=== PATIENT | male | born 1995 | race Caucasian/White ===

== ENCOUNTER 2019-07-09 16:22 | Emergency (ER) | payer OTHER ==
[2019-07-09] MEDS ORDERED: ONDANSETRON HCL INJ/PF 4 MG/2 ML SDV IV ONE ×2 (16:46→20:00)
[2019-07-09] MEDS ORDERED: NORMAL SALINE 1000 ML 1,000 ML IV ONE (16:46)
--- NOTE | 2019-07-09 17:08 | ER Document Report ---
ED General - General Chief Complaint: Fever Stated Complaint: FEVER Time Seen by Provider: 07/09/19 16:25 Mode of Arrival: Ambulatory Information source: Patient Notes: This 24-year-old male with history of depression myocarditis and anxiety presents to the emergency department with fever nausea vomiting or throat and cough that all started yesterday. Patient gives history of recent treatment for strep throat approximately 1 week ago he finished penicillin. He reports fever of 102 last night. Reports he had some nausea and vomiting yesterday. Also complains of cough with yellow sputum that started yesterday. Denies shortness of breath denies chest pain. 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 No family around him at this time. Denies covid exposure. Denies recent trip out of town. - HPI Onset: Yesterday Onset/Duration: Sudden Quality of pain: Other - Sore throat Associated symptoms: Productive cough, Fever, Nausea, Vomiting, Sore throat Exacerbated by: Denies Relieved by: Denies Similar symptoms previously: No Recently seen / treated by doctor: Yes - Related Data Allergies/Adverse Reactions: No Known Allergies Allergy (Verified 07/09/19 18:28) Past Medical History - General Information source: Patient - Social History Smoking Status: Never Smoker Chew tobacco use (# tins/day): No Frequency of alcohol use: None Drug Abuse: None Occupation: Active duty [employer] Lives with: Alone - Patient has family but is living alone at this time Family History: None Patient has suicidal ideation: No Patient has homicidal ideation: No - Past Medical History Cardiac Medical History: Reports: Other - Myocarditis Psychiatric Medical History: Reports: Hx Anxiety, Hx Depression Past Surgical History: Reports: Hx Nose Surgery, Hx Orthopedic Surgery - Immunizations Immunizations up to date: Yes Review of Systems - Review of Systems Notes: Review HPI for review of systems., All other systems negative Physical Exam - Vital signs Vitals: Temp 99.2 F 07/09/19 16:23 - General General appearance: Appears well, Alert In distress: None - HEENT Head: Normocephalic, Atraumatic Eyes: Normal Conjunctiva: Normal Extraocular movements intact: Yes Pupils: PERRL Ears: Normal External canal: Normal Tympanic membrane: Normal Sinus: Normal Nasal: Normal Mouth/Lips: Normal Mucous membranes: Moist Pharynx: Normal, Erythema. No: Exudate, Tonsillar hypertrophy, Potential airway comprom. Neck: Normal, Supple. No: Lymphadenopathy - Respiratory Respiratory status: No respiratory distress Chest status: Nontender Breath sounds: Normal Chest palpation: Normal - Cardiovascular Rhythm: Regular Heart sounds: Normal auscultation Murmur: No - Abdominal Inspection: Normal Distension: No distension Bowel sounds: Normal Tenderness: Nontender Organomegaly: No organomegaly - Back Back: Normal - Extremities General upper extremity: Normal ROM, Normal strength General lower extremity: Normal ROM, Normal strength - Neurological Neuro grossly intact: Yes Cognition: Normal Orientation: AAOx4 [place] Coma Scale Eye Opening: Spontaneous Paulo Coma Scale Verbal: Oriented Paulo Coma Scale Motor: Obeys Commands Paulo Coma Scale Total: 15 Speech: Normal - Psychological Associated symptoms: Normal affect, Normal mood - Skin Skin Temperature: Warm Skin Moisture: Dry Skin Color: Normal Course - Re-evaluation Re-evalutation: 07/09/19 17:06 24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 Gives history of strep approximately 1 week ago. Reports he has not had any re-exposure from strep that he knows of. Denies COVID exposure. Fluids with antinausea medicine, labs strep influenza and COVID ordered. patient instructed on plan of care. 07/09/19 Patient reports he feels much better no further vomiting drinking p.o. fluids. Labs unremarkable strep and flu test negative. COVID test obtained. Throat culture pending. Patient was instructed on all results. Patient was instructed on the importance of pushing fluids monitoring his temperature treat as appropriate. He was instructed on COVID quarantine. He verbalized understanding to all instructions. Laboratory 07/09/19 07/09/19 07/09/19 17:20 17:20 17:20 WBC 9.8 RBC 5.00 Hgb 15.9 Hct 45.3 MCV 91 MCH 31.8 MCHC 35.1 RDW 12.4 Plt Count 270 Lymph % (Auto) 13.5 [place] % (Auto) 9.4 Eos % (Auto) 0.2 Baso % (Auto) 0.4 Absolute Neuts (auto) 7.5 Absolute Lymphs (auto) 1.3 Absolute Monos (auto) 0.9 Absolute Eos (auto) 0.0 Absolute Basos (auto) 0.0 Seg Neutrophils % 76.5 Sodium Potassium Chloride Carbon Dioxide Anion Gap BUN Creatinine Est GFR ( Amer) Est GFR (MDRD) Non-Af Glucose Calcium Total Bilirubin Direct Bilirubin Neonat Total Bilirubin Neonat Direct Bilirubin Neonat Indirect Bili AST ALT Alkaline Phosphatase Total Protein Albumin Urine Color Urine Appearance Urine pH Ur Specific [place] Urine Protein Urine Glucose (UA) Urine Ketones Urine Blood Urine Nitrite Urine Bilirubin Urine Urobilinogen Ur Leukocyte Esterase Urine WBC (Auto) Squamous Epi Cells Auto Urine Mucus (Auto) Urine Ascorbic Acid Influenza A (Rapid) NEGATIVE Influenza B (Rapid) NEGATIVE Group A Strep Rapid NEGATIVE 07/09/19 07/09/19 17:20 18:30 WBC RBC Hgb Hct MCV MCH MCHC RDW Plt Count Lymph % (Auto) [place] % (Auto) Eos % (Auto) Baso % (Auto) Absolute Neuts (auto) Absolute Lymphs (auto) Absolute Monos (auto) Absolute Eos (auto) Absolute Basos (auto) Seg Neutrophils % Sodium 135.9 L Potassium 3.9 Chloride 99 Carbon Dioxide 25 Anion Gap 12 BUN 13 Creatinine 1.14 Est GFR ( Amer) > 60 Est GFR (MDRD) Non-Af > 60 Glucose 84 Calcium 9.4 Total Bilirubin 0.9 Direct Bilirubin 0.1 Neonat Total Bilirubin Not Reportable Neonat Direct Bilirubin Not Reportable Neonat Indirect Bili Not Reportable AST 46 ALT 67 H Alkaline Phosphatase 58 Total Protein 8.3 H Albumin 5.1 H Urine Color YELLOW Urine Appearance CLEAR Urine pH 6.0 Ur Specific [place] 1.013 Urine Protein NEGATIVE Urine Glucose (UA) NEGATIVE Urine Ketones TRACE H Urine Blood NEGATIVE Urine Nitrite NEGATIVE Urine Bilirubin NEGATIVE Urine Urobilinogen NEGATIVE Ur Leukocyte Esterase NEGATIVE Urine WBC (Auto) 0 Squamous Epi Cells Auto <1 Urine Mucus (Auto) OCC Urine Ascorbic Acid NEGATIVE Influenza A (Rapid) Influenza B (Rapid) Group A Strep Rapid 07/09/19 19:25 Chest X-Ray 07/09/19 16:46 IMPRESSION: 1. NO ACUTE RADIOGRAPHIC FINDING IN THE CHEST. 07/09/19 22:50 - Vital Signs Vital signs: Temp Pulse Resp BP Pulse Ox 99.6 F 90 19 138/79 H 98 07/09/19 19:10 07/09/19 19:10 07/09/19 19:10 07/09/19 19:10 07/09/19 19:10 - Laboratory Result Diagrams: 07/09/19 17:20 07/09/19 17:20 Laboratory results interpreted by me: 07/09/19 07/09/19 17:20 18:30 Sodium 135.9 L ALT 67 H Total Protein 8.3 H Albumin 5.1 H Urine Ketones TRACE H - Diagnostic Test Radiology reviewed: Reports reviewed Discharge - Discharge Clinical Impression: Sore throat Fever Qualifiers: Fever type: unspecified Qualified Code(s): R50.9 - Fever, unspecified Nausea and vomiting Qualifiers: Vomiting type: unspecified Vomiting Intractability: non-intractable Qualified Code(s): R11.2 - Nausea with vomiting, unspecified Condition: Stable Disposition: HOME, SELF-CARE Instructions: Acetaminophen, Antinausea Medication ([facility]), Intravenous (IV) Fluids ([facility]), Sore Throat ([facility]), Vomiting ([facility]) Additional Instructions: *You have been evaluated for a sore throat, fever, nausea and vomiting Your strep and influenza test were negative. A throat culture is pending. You may be contacted in 3 to 4 days should you need antibiotics. You have also been tested for the COVID. You need to self quarantine for at least 14 days or until you hear from the health department with negative results. In the meantime *Take medication as prescribed for nausea Gargle with warm salt water and suck on throat lozenges for comfort *Push fluids stay well-hydrated *Do not let anyone drink/eat after you *Good hand washing *Follow-up with your primary care within 1 week *Return to emergency department immediately for difficulty swallowing, worsening condition, concerns Monitor your blood pressure. Your blood pressure was elevated today. This may be because you were anxious, in pain or because you need medication. It is important to follow up with your primary care provider for full evaluation. As a person under investigation for Covid 19, the [place] department of Health and Human Services, division of public health advises you to adhere to the following guidance until your test results are reported to you. If your test result is positive, you will receive additional information from your provider and your local health department at that time. Remain at home until you are cleared by the health provider or public health authorities. Keep a log of visitors to your home, notify any visitors to your home of your i solation status. If you plan to move to a new address or leave the [facility], notify the local health department in your County. Call your doctor or seek care if you have an urgent medical need. Before seeking medical care, call ahead to get instructions from the provider before arriving at the medical office clinic or hospital. Notify them that you are being tested for the virus that causes Covid 19 so that arrangements can be made, as necessary, to prevent transmission to others in the healthcare setting. Next, notify the local health department in your county. If a medical emergency arises and you need to call 911, inform dispatch and the first responders that you are being tested for the virus that causes Covid 19. Next, notify the local health department in your county. Guidance for worsening S/SX: For worsening symptoms, patient has been advised to contact their Primary Care Provider, or go to the nearest Emergency Department. Forms: Elevated Blood Pressure
[2019-07-09 17:42] LABS: ABSOLUTE LYMPHOCYTES (AUTO) 1.3 10^3/uL (0.5-4.7); ABSOLUTE MONOCYTES (AUTO) 0.9 10^3/uL (0.1-1.4); ABSOLUTE NEUT (AUTO) 7.5 10^3/uL (1.7-8.2); BASOPHILS % (AUTO) 0.4 % (0-2); EOSINOPHILS % (AUTO) 0.2 % (0-6); HEMATOCRIT 45.3 % (37.9-51.0); HEMOGLOBIN 15.9 g/dL (13.5-17.0); LYMPHOCYTES % (AUTO) 13.5 % (13-45); MEAN CORPUSCULAR HEMOGLOBIN 31.8 pg (27.0-33.4); MEAN CORPUSCULAR HGB CONC 35.1 g/dL (32.0-36.0); MEAN CORPUSCULAR VOLUME 91 fl (80-97); MONOCYTES % (AUTO) 9.4 % (3-13); PLATELET COUNT 270 10^3/uL (150-450); RED CELL DISTRIBUTION WIDTH 12.4 % (11.5-14.0); SEGMENTED NEUTROPHILS % (AUTO) 76.5 % (42-78); TOTAL CELLS COUNTED % (AUTO) 100 %; WHITE BLOOD COUNT 9.8 10^3/uL (4.0-10.5)
[2019-07-09] MEDS ORDERED: ACETAMINOPHEN 325 MG TABLET PO ONE (17:42)
--- NOTE | 2019-07-09 17:52 | RADIOLOGY REPORT (SQ) ---
EXAM DESCRIPTION: CHEST SINGLE VIEW IMAGES COMPLETED DATE/TIME: 07/09/2019 5:27 pm REASON FOR STUDY: cough fever COMPARISON: None. EXAM PARAMETERS: NUMBER OF VIEWS: One view. TECHNIQUE: Single frontal radiographic view of the chest acquired. RADIATION DOSE: NA LIMITATIONS: None. FINDINGS: LUNGS AND PLEURA: No opacities, masses or pneumothorax. No pleural effusion. MEDIASTINUM AND HILAR STRUCTURES: No masses. Contour normal. HEART AND VASCULAR STRUCTURES: Heart normal in size. Normal vasculature. BONES: No acute findings. HARDWARE: None in the chest. OTHER: No other significant finding. IMPRESSION: 1. NO ACUTE RADIOGRAPHIC FINDING IN THE CHEST. TECHNICAL DOCUMENTATION: JOB ID: [id number] 2010 [employer]- All Rights Reserved Reading location - IP/workstation name: [email or web address]
[2019-07-09 18:06] LABS: ALBUMIN 5.1 g/dL (3.5-5.0); ALKALINE PHOSPHATASE 58 U/L (38-126); ANION GAP 12 (5-19); ASPARTATE AMINO TRANSFERASE 46 U/L (17-59); BILIRUBIN,DIRECT 0.1 mg/dL (0.0-0.4); BILIRUBIN,TOTAL 0.9 mg/dL (0.2-1.3); BLOOD UREA NITROGEN 13 mg/dL (7-20); CALCIUM 9.4 mg/dL (8.4-10.2); CARBON DIOXIDE 25 mmol/L (22-30); CHLORIDE 99 mmol/L (98-107); GLUCOSE 84 mg/dL (75-110); POTASSIUM 3.9 mmol/L (3.6-5.0); TOTAL PROTEIN 8.3 g/dL (6.3-8.2)
[2019-07-09 18:21] LABS: A TYPE INFLUENZA AG NEGATIVE (NEGATIVE); B INFLUENZA AG NEGATIVE (NEGATIVE)
[2019-07-09 18:50] LABS: APPEARANCE,URINE CLEAR; BILIRUBIN,URINE NEGATIVE (NEGATIVE); COLOR,URINE YELLOW; GLUCOSE, URINE NEGATIVE (NEGATIVE); KETONES,URINE TRACE mg/dL (NEGATIVE); LEUKOCYTE ESTERASE,URINE NEGATIVE (NEGATIVE); NITRITE,URINE NEGATIVE (NEGATIVE); PROTEIN,URINE NEGATIVE (NEGATIVE); URINE SPECIFIC GRAVITY 1.013; UROBILINOGEN,URINE NEGATIVE mg/dL (<2.0)
[2019-07-09 19:13] VITALS: BP 138/79
[2019-07-09] MEDS ORDERED: ONDANSETRON ODT 4 MG TAB (6 TAB/ER DISP) PO PRN (20:00)
== END 2019-07-09 21:32 | disposition home or self-care (01) ==
LOC: ER 16:22
DX: R50.9 Fever, unspecified (principal); R11.2 Nausea with vomiting, unspecified; R05 Cough; J02.9 Acute pharyngitis, unspecified; Z86.79 Personal history of other diseases of the circulatory system; Z20.828 Contact with and (suspected) exposure to other viral communicable diseases
CPT/HCPCS: 99283; 96361; 96374; 36415; 87040; 87070; 87880; 85025; 87635; 87077; 80053; 81001; 87186; 87804; 87150 ×26; 71045; J2405; J7030

== ENCOUNTER 2019-09-02 22:10 | Emergency (ER) | payer OTHER ==
[2019-09-02] MEDS ORDERED: IBUPROFEN 800 MG TABLET PO ONE (23:01)
[2019-09-02] MEDS ORDERED: NORMAL SALINE 1000 ML 1,000 ML IV ONE (23:25)
[2019-09-02] MEDS ORDERED: ONDANSETRON HCL INJ/PF 4 MG/2 ML SDV IV ONE (23:26)
[2019-09-02] MEDS ORDERED: KETOROLAC TROMETHAMINE INJ/PF 30 MG/1 ML SDV IV ONE (23:26)
[2019-09-02] MEDS ORDERED: DEXAMETHASONE SOD PHOS INJ 10 MG/1 ML VIAL IV ONE (23:26)
--- NOTE | 2019-09-02 23:29 | ER Document Report ---
ED General - General Stated Complaint: COVID SYMPTOMS Time Seen by Provider: 09/02/19 23:11 Mode of Arrival: Ambulatory Information source: Patient TRAVEL OUTSIDE OF THE [place] IN LAST 30 DAYS: No - HPI Onset: Other - over the last 24 hours Onset/Duration: Gradual Quality of pain: Achy - of joints and muscles, Throbbing - of throat Severity: Moderate Pain Level: 3 Associated symptoms: Fever, Nausea, Vomiting, Sore throat, Other - body aches, flank pains Exacerbated by: Denies Relieved by: Denies Similar symptoms previously: No Recently seen / treated by doctor: Yes - patient seen in this ER for similar symptoms on 07/09/19 Notes: 24 year old male with no significant PMH here in the ER for 24 hours of a sore throat, white tonsilar exudate, fevers, chills, nausea, vomiting, body aches, flank pains. The patient is a Marine. The patient denies known sick contacts or recent travel. The patient says he has felt like this before when he has had a viral syndrome. The patient was seen for the same symptoms on 07/09/19 in this ER and he tested negative for Strep, Flu, and COVID. The patient has not been tested for [place]. - Related Data Allergies/Adverse Reactions: No Known Allergies Allergy (Verified 07/09/19 18:28) Past Medical History - General Information source: Patient - Social History Smoking Status: Current Every Day Smoker - Vapes Frequency of alcohol use: Occasional Drug Abuse: None Family History: None Psychiatric Medical History: Reports: Hx Anxiety, Hx Depression Past Surgical History: Reports: Hx Nose Surgery, Hx Orthopedic Surgery - Immunizations Immunizations up to date: Yes Review of Systems - Review of Systems Constitutional: Chills, Fever EENT: Throat pain Cardiovascular: No symptoms reported Respiratory: No symptoms reported Gastrointestinal: Nausea, Vomiting Genitourinary: No symptoms reported Male Genitourinary: No symptoms reported Musculoskeletal: Joint pain, Muscle pain Skin: No symptoms reported Hematologic/Lymphatic: No symptoms reported Neurological/Psychological: No symptoms reported -: Yes All other systems reviewed and negative Physical Exam - Vital signs Vitals: Temp Pulse Resp BP Pulse Ox 101.5 F H 125 H 16 128/80 H 100 09/02/19 22:21 09/02/19 22:21 09/02/19 22:21 09/02/19 22:21 09/02/19 22:21 - Notes Notes: GENERAL: Well-appearing, well-nourished and in no acute distress. HEAD: Atraumatic, normocephalic. EYES: Pupils equal round and reactive to light, extraocular movements intact, s clera anicteric, conjunctiva are normal. ENT: External ears normal, nares patent, oropharynx erythematous, tonsils swollen with white exudates. Moist mucous membranes. NECK: Normal range of motion, supple without lymphadenopathy or JVD. LUNGS: Breath sounds clear to auscultation bilaterally and equal. No wheezes rales or rhonchi. HEART: Tachycardic, regular rhythm without murmurs, rubs or gallops. ABDOMEN: Soft, nontender, normoactive bowel sounds. No guarding, no rebound. No masses appreciated. EXTREMITIES: Normal range of motion, no pitting or edema. No clubbing or cyanosis. NEUROLOGICAL: Cranial nerves II through XII grossly intact. Normal speech, normal gait. PSYCH: Normal mood, normal affect. SKIN: Warm, Dry, normal turgor, no rashes or lesions noted. Course - Re-evaluation Re-evalutation: 09/03/19 00:10 The patient tested positive for strep throat and negative for [place]. The patient was tachycardic and febrile on ER arrival. The patient was treated with IV fluids, IV Toradol, IV Decadron, IV Zofran, and IM Pencillin. Patient told to follow up with his PCP if symptoms persisted. It sounds like the patient just had Strep Throat in June so he is likely colonized. - Vital Signs Vital signs: Temp Pulse Resp BP Pulse Ox 102.8 F H 125 H 16 128/80 H 100 09/02/19 22:58 09/02/19 22:21 09/02/19 22:21 09/02/19 22:21 09/02/19 22:21 - Laboratory Result Diagrams: 09/02/19 23:22 09/02/19 23:22 Laboratory results interpreted by me: 09/02/19 09/02/19 23:22 23:22 WBC 16.3 H MCHC 36.2 H Seg Neuts % (Manual) 84 H Lymphocytes % (Manual) 8 L Abs Neuts (Manual) 13.7 H Sodium 135.0 L Creatinine 1.27 H Albumin 5.1 H Discharge - Discharge Clinical Impression: Strep throat Condition: Stable Disposition: HOME, SELF-CARE Instructions: Strep Throat ([facility]) Additional Instructions: You tested positive for Strep Throat. You were treated in the ER with Penicillin for your Strep Throat. Drink plenty of fluids in the days to come and use Tylenol and Motrin for pain and fevers. Use the prescribed Zofran as needed for nausea. Follow up with your primary care doctor if symptoms persist. Prescriptions: Ondansetron [Zofran Odt 4 mg Tablet] 4 mg PO Q8H PRN #10 tab.rapdis PRN Reason:
[2019-09-02 23:38] LABS: HEMATOCRIT 44.6 % (37.9-51.0); HEMOGLOBIN 16.2 g/dL (13.5-17.0); MEAN CORPUSCULAR HEMOGLOBIN 32.2 pg (27.0-33.4); MEAN CORPUSCULAR HGB CONC 36.2 g/dL (32.0-36.0); MEAN CORPUSCULAR VOLUME 89 fl (80-97); PLATELET COUNT 268 10^3/uL (150-450); RED BLOOD COUNT 5.01 10^6/uL (4.35-5.55); RED CELL DISTRIBUTION WIDTH 13.1 % (11.5-14.0); WHITE BLOOD COUNT 16.3 10^3/uL (4.0-10.5)
[2019-09-02 23:51] LABS: ALBUMIN 5.1 g/dL (3.5-5.0); ALKALINE PHOSPHATASE 60 U/L (38-126); ANION GAP 10 (5-19); ASPARTATE AMINO TRANSFERASE 23 U/L (17-59); BILIRUBIN,DIRECT 0.1 mg/dL (0.0-0.4); BILIRUBIN,TOTAL 1.3 mg/dL (0.2-1.3); BLOOD UREA NITROGEN 11 mg/dL (7-20); CALCIUM 9.8 mg/dL (8.4-10.2); CARBON DIOXIDE 27 mmol/L (22-30); CHLORIDE 98 mmol/L (98-107); GLUCOSE 104 mg/dL (75-110); POTASSIUM 3.9 mmol/L (3.6-5.0); TOTAL PROTEIN 8.2 g/dL (6.3-8.2)
[2019-09-02 23:59] LABS: ABSOLUTE LYMPHOCYTES# (MANUAL) 2.1 10^3/uL (0.5-4.7); ABSOLUTE MONOCYTES # (MANUAL) 0.5 10^3/uL (0.1-1.4); BASOPHILS % (MANUAL) 0 % (0-2); EOSINOPHILS % (MANUAL) 0 % (0-6); LYMPHOCYTES % (MANUAL) 8 % (13-45); MONOCYTES % (MANUAL) 3 % (3-13); SEGMENTED NEUTROPHILS % (MAN) 84 % (42-78); TOTAL CELLS COUNTED 100
[2019-09-03] LABS: TOXIC VACUOLATION PRESENT
[2019-09-03 00:02] LABS: PLATELET COMMENT ADEQUATE
[2019-09-03] MEDS ORDERED: PENICILLIN G BENZATHINE 1.2 MILLION UNIT/2 ML DISP.SYRIN IM ONE (00:14)
[2019-09-03 00:31] VITALS: BP 121/63
== END 2019-09-03 00:44 | disposition home or self-care (01) ==
LOC: ER 22:10
DX: J02.0 Streptococcal pharyngitis (principal); R50.9 Fever, unspecified; R11.2 Nausea with vomiting, unspecified; F17.290 Nicotine dependence, other tobacco product, uncomplicated
CPT/HCPCS: 99283; 96372; 96361; 96374; 96375; 36415; 87880; 85025; 86308; 80053; J1885; J0561; J2405; J7030; J1100